=== PATIENT | female | born 1965 | race Caucasian/White ===

== ENCOUNTER 2017-04-10 04:39 | Emergency (ER) | payer BC ==
[~2017-04-10] VITALS: Ht 165.1 cm; Wt 83.8 kg
[~2017-04-10 04:39] MED LIST: LEXAPRO; LISINOPRIL; METFORMIN; PERCOCET 5/31 TABLET PO; SINGULAIR; WELLBUTRIN
[2017-04-10] MEDS ORDERED: ULTRAM50 MG PO (05:28)
[2017-04-10 05:51] VITALS: BP 148/107
== END 2017-04-10 05:52 | disposition home or self-care (01) ==
LOC: EME 04:39
DX: S82.145A Nondisplaced bicondylar fracture of left tibia, initial encounter for closed fracture (principal); S82.832A Other fracture of upper and lower end of left fibula, initial encounter for closed fracture; S80.12XA Contusion of left lower leg, initial encounter; W10.9XXA Fall (on) (from) unspecified stairs and steps, initial encounter; Z88.6 Allergy status to analgesic agent; Z88.7 Allergy status to serum and vaccine
CPT/HCPCS: 73564; 73590; 99281; 99283

== ENCOUNTER → 2017-08-20 | Outpatient (CLI) | payer BC ==
[~2017-08-20] MED LIST changes: +ULTRAM50 MG PO
== END | disposition home or self-care (01) ==
LOC: CDC 14:54
DX: Z01.810 Encounter for preprocedural cardiovascular examination (principal); G56.03 Carpal tunnel syndrome, bilateral upper limbs; G56.21 Lesion of ulnar nerve, right upper limb; M25.531 Pain in right wrist; I10 Essential (primary) hypertension; E11.9 Type 2 diabetes mellitus without complications; R94.31 Abnormal electrocardiogram [ECG] [EKG]
CPT/HCPCS: 93000